=== PATIENT | male | born 1970 | race American Indian/Alaskan Native ===

== ENCOUNTER 2017-01-21 16:35 | Inpatient (IN) | payer OTHER ==
[~2017-01-21] VITALS: Ht 188 cm; Wt 109.0 kg
[2017-01-21 13:24] VITALS: O2SAT 100
[2017-01-21 16:49] VITALS: BP 94/52; PULSE 57; RESP 16; TEMP 97.6; O2SAT 95
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
[2017-01-21] MEDS ORDERED: SODIUM CHLORIDE 0.9% FLUSH 5 ML FLUSH IVF PRN ×2 (17:00→18:30)
[2017-01-21] MEDS ORDERED: SODIUM CHLOR 0.9% 1000 ML INJ 1,000 ML IV ONE ×2 (17:00→18:15)
[2017-01-21] MEDS ORDERED: MORPHINE SULFATE 4 MG/ML INJ IV PUSH ONE (17:15)
[2017-01-21] MEDS ORDERED: ONDANSETRON HCL 4 MG/2 ML VIAL IV ONE (17:15)
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
[2017-01-21 17:33] LABS: BASOPHIL # 0.1 TH/MM3 (0-0.2); BASOPHIL % 0.6 % (0.0-2.0); EOSINOPHIL # 0.2 TH/MM3 (0-0.4); EOSINOPHIL % 1.7 % (0.0-4.0); HEMATOCRIT 40.6 % (39.0-51.0); HEMO FLAGS DIFF FINAL; LYMPH % 22.7 % (9.0-44.0); MEAN CELL VOLUME 93.1 FL (80.0-100.0); MEAN CORPUSCULAR HEMOGLOBIN 31.5 PG (27.0-34.0); MEAN CORPUSCULAR HGB CONC 33.8 % (32.0-36.0); MONO % 7.1 % (0.0-8.0); NEUT % 67.9 % (16.0-70.0); PLATELET COUNT 297 TH/MM3 (150-450); RED BLOOD COUNT 4.36 MIL/MM3 (4.50-5.90); RED CELL DISTRIBUTION WIDTH 13.2 % (11.6-17.2); WHITE BLOOD COUNT 13.3 TH/MM3 (4.0-11.0)
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
[2017-01-21] MEDS ORDERED: IOHEXOL 350 MG/ML 10 ML VIAL (for RAD DIAG) IV ONE (17:46)
[2017-01-21 17:49] LABS: APTT (PATIENT) 20.8 SEC (24.3-30.1); PROTHROMBIN TIME - PATIENT 10.7 SEC (9.8-11.6)
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
[2017-01-21 17:58] LABS: BICARBONATE 25.9 MEQ/L (21.0-32.0); POTASSIUM 3.9 MEQ/L (3.5-5.1)
[2017-01-21 18:04] VITALS: BP 95/59; PULSE 77; RESP 16; O2SAT 99
[2017-01-21] MEDS ORDERED: Post-op Orders (for Pharmacy) MISC XX ONE (18:30)
[2017-01-21] MEDS ORDERED: NALOXONE HCL 0.4 MG/ML AMP IV PRN (18:30)
[2017-01-21] MEDS: HYDROmorphone HCL 2 MG TAB PO PRN ×2 (19:14→23:16)
[2017-01-21] MEDS: SODIUM CHLOR 0.9% 1000 ML INJ 1,000 ML IV SCH (19:14)
[2017-01-21 19:15] VITALS: BP 106/60; PULSE 77; RESP 16; O2SAT 100
[2017-01-21] MEDS: ACETAMINOPHEN 1000 MG/100 ML VIAL IV SCH (20:08)
[2017-01-21] MEDS: PANTOPRAZOLE SOD 40 MG DELAYED RELEASE TAB PO SCH (20:08)
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
[2017-01-21] MEDS: SODIUM CHLORIDE 0.9% FLUSH 5 ML FLUSH IVF SCH (20:54)
[2017-01-21] MEDS: oxyCODONE/ACETAMINOPHEN 5 MG/325 MG TAB PO PRN (23:15)
[2017-01-22] VITALS (10 sets, daily range): BP systolic 118–138; BP diastolic 61–69; PULSE 64–86; RESP 14–25; TEMP 98.2–98.8; O2SAT 92–96
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
[2017-01-22] MEDS: ACETAMINOPHEN 1000 MG/100 ML VIAL IV SCH ×3 (03:54→13:20)
[2017-01-22] MEDS: HYDROmorphone HCL 2 MG TAB PO PRN ×2 (03:54→08:02)
[2017-01-22 04:48] LABS: AUTOMATED NEUTROPHIL # 8.3 TH/MM3 (1.8-7.7); BASOPHIL % 0.1 % (0.0-2.0); HEMATOCRIT 36.7 % (39.0-51.0); HEMO FLAGS DIFF FINAL; LYMPH % 10.5 % (9.0-44.0); LYMPHOCYTE # 1.1 TH/MM3 (1.0-4.8); MEAN CELL VOLUME 92.5 FL (80.0-100.0); MEAN CORPUSCULAR HEMOGLOBIN 31.5 PG (27.0-34.0); MEAN CORPUSCULAR HGB CONC 34.1 % (32.0-36.0); MONO % 11.1 % (0.0-8.0); NEUT % 78.3 % (16.0-70.0); PLATELET COUNT 227 TH/MM3 (150-450); RED BLOOD COUNT 3.96 MIL/MM3 (4.50-5.90); RED CELL DISTRIBUTION WIDTH 13.6 % (11.6-17.2); WHITE BLOOD COUNT 10.5 TH/MM3 (4.0-11.0)
--- NOTE | 2017-01-22 05:03 | RADRPT ---
EXAM DATE/TIME: 01/22/2017 04:16 [facility] COMPARISON: CHEST SINGLE AP, January 21, 2017, 16:53. INDICATIONS : Shortness of breath. MEDICAL HISTORY : None. SURGICAL HISTORY : None. ENCOUNTER: Subsequent ACUITY: 1 day PAIN SCORE: Non-responsive. LOCATION: Bilateral chest FINDINGS: There is a lesser degree of inspiration when compared to the chest x-ray yesterday. There is associa lalo crowding of the bronchopulmonary markings and some ill-defined opacity in the perihilar regions. Both hemidiaphragms remain well delineated. The heart is normal size. Right clavicular fracture. CONCLUSION: Crowding of the bronchopulmonary markings probably due to submaximal inspiration. No focal areas of consolidation seen. Andrea Egan MD on January 22, 2017 at 5:01 Board Certified Radiologist. This report was verified electronically.
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
[2017-01-22 05:08] LABS: POTASSIUM 4.3 MEQ/L (3.5-5.1)
[2017-01-22] MEDS: SODIUM CHLORIDE 0.9% FLUSH 5 ML FLUSH IVF SCH ×2 (08:03→20:47)
[2017-01-22] MEDS: DOCUSATE SODIUM 50 MG/SENNA 8.6 MG TAB PO SCH ×2 (08:03→21:37)
[2017-01-22] MEDS: SODIUM CHLOR 0.9% 1000 ML INJ 1,000 ML IV SCH (08:03)
[2017-01-22] MEDS: HYDROmorphone HCL PF 1 MG/ML VIAL IV PRN ×3 (10:29→23:29)
[2017-01-22] MEDS: ONDANSETRON HCL 4 MG/2 ML VIAL IV PRN ×2 (10:37→23:29)
[2017-01-22] MEDS: LIDOCAINE HCL 5% PATCH TD SCH (11:13)
[2017-01-22] MEDS: ENOXAPARIN SODIUM 40 MG/0.4 ML SYRINGE SQ SCH (11:13)
[2017-01-22] MEDS: oxyCODONE/ACETAMINOPHEN 5 MG/325 MG TAB PO PRN ×3 (13:20→22:26)
[2017-01-22] MEDS: METHOCARBAMOL 500 MG TAB PO SCH ×2 (14:24→21:37)
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
[2017-01-22] MEDS: PANTOPRAZOLE SOD 40 MG DELAYED RELEASE TAB PO SCH (20:47)
[2017-01-22] MEDS ORDERED: REMOVE OLD PATCH T-DERMAL SCH (21:00)
[2017-01-22] MEDS ORDERED: MAGNESIUM HYDROXIDE SUSP 30 ML CUP PO SCH (21:00)
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
[2017-01-23] VITALS: BP 148/80; PULSE 79; RESP 20; TEMP 79.9; O2SAT 94
[2017-01-23] MEDS: oxyCODONE/ACETAMINOPHEN 5 MG/325 MG TAB PO PRN ×4 (02:33→14:38)
[2017-01-23] MEDS: HYDROmorphone HCL PF 1 MG/ML VIAL IV PRN ×4 (03:40→17:38)
[2017-01-23 05:02] LABS: AUTOMATED NEUTROPHIL # 6.5 TH/MM3 (1.8-7.7); BASOPHIL % 0.3 % (0.0-2.0); EOSINOPHIL # 0.1 TH/MM3 (0-0.4); EOSINOPHIL % 0.6 % (0.0-4.0); HEMATOCRIT 33.9 % (39.0-51.0); HEMO FLAGS DIFF FINAL; LYMPH % 17.4 % (9.0-44.0); LYMPHOCYTE # 1.6 TH/MM3 (1.0-4.8); MEAN CELL VOLUME 93.4 FL (80.0-100.0); MEAN CORPUSCULAR HEMOGLOBIN 31.3 PG (27.0-34.0); MEAN CORPUSCULAR HGB CONC 33.5 % (32.0-36.0); MONO % 10.3 % (0.0-8.0); NEUT % 71.4 % (16.0-70.0); PLATELET COUNT 183 TH/MM3 (150-450); RED BLOOD COUNT 3.63 MIL/MM3 (4.50-5.90); RED CELL DISTRIBUTION WIDTH 13.4 % (11.6-17.2)
[2017-01-23 05:30] LABS: ALKALINE PHOSPHATASE 39 U/L (45-117); ALT (GPT) 45 U/L (12-78); TOTAL BILIRUBIN ADULT 0.5 MG/DL (0.2-1.0)
--- NOTE | 2017-01-23 06:04 | RADRPT ---
EXAM DATE/TIME: 01/23/2017 05:19 [place] COMPARISON: CHEST SINGLE AP, January 22, 2017, 4:16. INDICATIONS : Shortness of breath. MEDICAL HISTORY : None. SURGICAL HISTORY : None. ENCOUNTER: Subsequent ACUITY: 3 days PAIN SCORE: 0/10 LOCATION: Bilateral chest FINDINGS: Interval development of bilateral lower lobe infiltrates, consolidative in the left lower lung with l oss of delineation the entire left hemidiaphragm and partially consolidative in the right lower lung. No evidence pneumothorax. Right mid shaft clavicular fracture. The heart is normal size. CONCLUSION: Bilateral lower lung infiltrates, with consolidation on the left side. Andrea Egan MD on January 23, 2017 at 6:01 Board Certified Radiologist. This report was verified electronically.
[2017-01-23 06:06] LABS: ANION GAP 9 MEQ/L (5-15); AST (GOT) 62 U/L (15-37); BICARBONATE 26.5 MEQ/L (21.0-32.0); BLOOD UREA NITROGEN 11 MG/DL (7-18); CHLORIDE 102 MEQ/L (98-107); GLOMERULAR FILTRATION RATE 87 ML/MIN (>89); POTASSIUM 3.7 MEQ/L (3.5-5.1); SODIUM (NA) 137 MEQ/L (136-145)
[2017-01-23] MEDS: METHOCARBAMOL 500 MG TAB PO SCH ×2 (06:06→13:10)
[2017-01-23] MEDS: LIDOCAINE HCL 5% PATCH TD SCH (07:49)
[2017-01-23] MEDS: DOCUSATE SODIUM 50 MG/SENNA 8.6 MG TAB PO SCH (07:53)
[2017-01-23] MEDS: SODIUM CHLORIDE 0.9% FLUSH 5 ML FLUSH IVF SCH (07:53)
[2017-01-23 08:00] VITALS: BP 104/63; PULSE 85; RESP 19; TEMP 98.5; O2SAT 96
[2017-01-23] MEDS: ENOXAPARIN SODIUM 40 MG/0.4 ML SYRINGE SQ SCH (11:25)
[2017-01-23 12:00] VITALS: BP 112/66; PULSE 75; RESP 19; TEMP 97.4; O2SAT 95
[2017-01-23] MEDS ORDERED: METH500T3 PO (13:35)
[2017-01-23] MEDS ORDERED: LIDO5DIS35 TD (13:35)
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
[2017-01-23 15:38] VITALS: RESP 18
== END 2017-01-23 17:52 | disposition home or self-care (01) | DRG 183 ==
LOC: NEPE 16:35 → NEDA 18:11 → N03B 22:10 → N07A 01-22 20:23
PROVIDERS: ADMIT Surgery; ATTEND Surgery
DX: S22.43XA Multiple fractures of ribs, bilateral, initial encounter for closed fracture (principal); S27.1XXA Traumatic hemothorax, initial encounter; S27.322A Contusion of lung, bilateral, initial encounter; S42.024A Nondisplaced fracture of shaft of right clavicle, initial encounter for closed fracture; V28.4XXA Motorcycle driver injured in noncollision transport accident in traffic accident, initial encounter; Y92.488 Other paved roadways as the place of occurrence of the external cause; Y93.89 Activity, other specified; S50.312A Abrasion of left elbow, initial encounter; S20.312A Abrasion of left front wall of thorax, initial encounter; S40.011A Contusion of right shoulder, initial encounter; S61.011A Laceration without foreign body of right thumb without damage to nail, initial encounter; R51 Headache; M54.2 Cervicalgia
CPT/HCPCS: 70450; 71010; 71260; 72125; 72170; 73130; 74177; 80048; 80053; 85025; 85610; 85730; 87641; 94150; 94640; 94667; 94668; 96374; 96375; 99292; J0131; J1170; J1650; J2270; J2405; J7030; Q9967